=== PATIENT | female | born 1955 | race Caucasian/White ===

== ENCOUNTER → 2016-04-23 | Outpatient (REF) | payer OTHER ==
[2016-04-23 13:57] LABS: CONTROL LINE MONO INT CTR LINE PRESENT
[2016-04-24 14:05] LABS: HIV SCRN NEGATIVE (NEGATIVE); HIV SCRN1 NEGATIVE (NEGATIVE)
[2016-04-24 14:06] LABS: CONTROL LINE INT CTR LINE PRESENT
== END ==
LOC: M LAB REF 13:17
PROVIDERS: ATTEND Internal Medicine
DX: B02.9 Zoster without complications (principal); R53.83 Other fatigue

== ENCOUNTER → 2016-06-21 | Outpatient (CLI) | payer OTHER ==
[~2016-06-21] MED LIST: BIOT2500 PO; D31000CA PO; KLON1TAB PO; MULT1TAB9 PO; PROZ40CA PO; XANA0.5T PO
--- NOTE | 2016-06-21 16:12 | ECGEPIP ---
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
== END ==
LOC: M EKG 14:13
PROVIDERS: ATTEND Anesthesiology
DX: R00.1 Bradycardia, unspecified (principal)

== ENCOUNTER → 2016-06-26 | Day surgery (SDC) | payer OTHER ==
[~2016-06-26] VITALS: Ht 167.6 cm; Wt 70.8 kg
[~2016-06-26] MED LIST changes: +BUPIVACAINE/EPIN 0.25% 30 ML VIAL As Ordered ONE; +LR 1,000 ML IV SCH; +METOCLOPRAMIDE INJ 10MG/2ML VIAL (J2765) IV PRN; +MIDAZOLAM INJ 2 MG/2 ML VIAL (J2250) As Ordered ONE; +MORPHINE 2 MG/ML 1ML SYRINGE IV PRN; +NORCO, ANEXSIA 5/325MG TABLET (HYDROcodone/ACETAMINOPHEN) PO PRN; +ONDANSETRON 4MG/2ML VIAL (J2405) IV PRN; +PERCOCET 5MG/325MG TAB PO PRN; +PROPOFOL 200 MG/20 ML VIAL As Ordered ONE; +fentaNYL 100 MCG/2 ML INJECTION (J3010) As Ordered ONE
[2016-06-26] MEDS: BUPIVACAINE/EPIN 0.25% 30 ML VIAL As Ordered ONE ×2 (11:08→11:22)
[2016-06-26 11:45] VITALS: BP 147/86
--- NOTE | 2016-07-16 10:15 | RO ---
DATE OF PROCEDURE: 06/26/2016 PREOPERATIVE DIAGNOSIS: Left flank lipoma. POSTOPERATIVE DIAGNOSIS: Left flank lipoma. PROCEDURE: Excision of a multilobulated left flank lipoma 14 x 10 cm. SURGEON: Dr. Gilbert Pacheco [employer] ENGINEER: ANESTHESIA; ESTIMATED BLOOD LOSS: Minimal. FLUIDS: Crystalloid. BRIEF PROCEDURE SUMMARY: The patient was brought to the operating room and was given IV sedation and was prepped and draped in the usual sterile fashion. Local lidocaine mixed with epinephrine was infiltrated into the skin and subcutaneous tissue in this area. A longitudinal incision over the lipoma was made and the dermis was incised with electrocautery. A combination of blunt and sharp dissection was used to dissect down to the lipoma itself. The lipoma itself was a multilobulated lipoma and eventually I was able to remove this in its entirety with a combination of blunt and sharp dissection. Surrounding the lipoma, some of the septations were taken down with electrocautery and eventually this was followed all the way down to the abdominal wall/chest wall, but did not invade through the muscles itself. The lesion was removed in its entirety and the site was closed with multiple layers with #2-0 Vicryl deep layer, #3-0 Vicryl dermal and #4-0 Vicryl subcuticular. Steri-Strips and a dry sterile dressing was applied. The patient was awakened from her sedation and brought to the recovery room awake, alert and hemodynamically stable. Sponge and needle counts were correct times two.
== END ==
LOC: M SDC 08:27
PROVIDERS: ATTEND Surgery
DX: D17.1 Benign lipomatous neoplasm of skin and subcutaneous tissue of trunk (principal); E78.00 Pure hypercholesterolemia, unspecified; F32.89 Other specified depressive episodes; F41.9 Anxiety disorder, unspecified; E04.1 Nontoxic single thyroid nodule; R13.10 Dysphagia, unspecified; Q44.6 Cystic disease of liver; D73.89 Other diseases of spleen; R91.1 Solitary pulmonary nodule; K21.9 Gastro-esophageal reflux disease without esophagitis; N28.1 Cyst of kidney, acquired; Z79.899 Other long term (current) drug therapy; Z88.0 Allergy status to penicillin; Z88.1 Allergy status to other antibiotic agents
CPT/HCPCS: 21931; 88304; J2250; J3010

== ENCOUNTER → 2016-07-09 | Outpatient (REF) | payer OTHER ==
[~2016-07-09] MED LIST changes: -BUPIVACAINE/EPIN 0.25% 30 ML VIAL As Ordered ONE; -LR 1,000 ML IV SCH; -METOCLOPRAMIDE INJ 10MG/2ML VIAL (J2765) IV PRN; -MIDAZOLAM INJ 2 MG/2 ML VIAL (J2250) As Ordered ONE; -MORPHINE 2 MG/ML 1ML SYRINGE IV PRN; -NORCO, ANEXSIA 5/325MG TABLET (HYDROcodone/ACETAMINOPHEN) PO PRN; -ONDANSETRON 4MG/2ML VIAL (J2405) IV PRN; -PERCOCET 5MG/325MG TAB PO PRN; -PROPOFOL 200 MG/20 ML VIAL As Ordered ONE; -fentaNYL 100 MCG/2 ML INJECTION (J3010) As Ordered ONE
[2016-07-09 19:48] LABS: THYROID PEROXIDASE ANTIBODY > 1300.0 U/ML (<60.0)
== END ==
LOC: M LAB REF 16:56
PROVIDERS: ATTEND Internal Medicine
DX: E04.1 Nontoxic single thyroid nodule (principal)

== ENCOUNTER → 2017-10-02 | Outpatient (REF) | payer OTHER ==
[2017-10-02 13:46] LABS: URIC ACID 3.8 MG/DL (2.6-6.0)
[2017-10-04 00:07] LABS: ANTINUCLEAR ANTIBODIES DIRECT Negative (Negative); Lyme Disease IgG/IgM Antibodie <0.91 ISR (0.00-0.90); Lyme Disease IgM Ab Quantitati <0.80 index (0.00-0.79)
== END ==
LOC: M LAB REF 13:09
DX: M25.579 Pain in unspecified ankle and joints of unspecified foot (principal); M79.673 Pain in unspecified foot

== ENCOUNTER → 2017-10-15 | Outpatient (REF) | payer OTHER ==
[2017-10-18 00:11] LABS: CYCLIC CITRULLINATED PEPTIDE 7 units (0-19)
== END ==
LOC: M LAB REF 19:43
DX: M25.579 Pain in unspecified ankle and joints of unspecified foot (principal)
CPT/HCPCS: 86200